=== PATIENT | female | born 1955 | race Caucasian/White ===

== ENCOUNTER → 2021-01-26 13:10 | Outpatient (CLI) | payer BC, OTHER, SELFPAY ==
[2021-01-26 14:47] LABS: COVID19 -Nasal RAPID Negative (Negative)
== END ==
PROVIDERS: Visit Provider Student in an Organized Health Care Education/Training Program
DX: Z01.812 Encounter for preprocedural laboratory examination (principal); Z20.822 Contact with and (suspected) exposure to COVID-19
CPT/HCPCS: 87635

== ENCOUNTER → 2021-01-28 10:39 | Outpatient (CLI) | payer MEDICARE, BC, OTHER, SELFPAY ==
--- NOTE | 2021-01-28 10:46 | DI.NM.S_ITS ---
PROCEDURE: NM WILIAM PERF SPECT REST & STR Rest and exercise myocardial perfusion SPECT with gated imaging and ejection fraction RADIOPHARMACEUTICAL: 12.0 mCi Tc-99m sestamibi IV at rest and 26.4 mCi Tc-99m sestamibi IV at peak exercise. A one day-protocol was performed. INDICATIONS: Paroxysmal atrial fibrillation TECHNIQUE: Radiopharmaceutical was injected at peak stress test, and also at rest. SPECT images were obtained. SPECT myocardial perfusion images were displayed in short axis, horizontal long axis, and vertical long axis views. Gated images were reviewed using [employer] software. COMPARISON: None. CARDIAC STRESS: A standard Mendel treadmill exercise tolerance test was performed by the patient under the supervision of an attending staff. The patient exercised for 5 minutes and 33 seconds; functional aerobic impairment (OTIS) is +13%. Hemodynamic data: There is normal blood pressure and heart rate response to exercise stress. Patient achieved 99% of maximum predicted heart rate at peak exercise. Symptoms: Patient denied chest pain during exercise. EKG: Minimal horizontal ST depressions in the anterolateral leads during recovery; frequent PVCs with 3 beat runs of NSVT. FINDINGS: Raw data: There is good myocardial labeling by radiotracer. No significant motion artifacts. Ikfd-no-gdxsl ratio is 0.39 (normal is less than 0.38 for sestamibi tracer, and less than 0.50 for thallium tracer). Left ventricle function: Gated images demonstrate normal left ventricle wall thickening. No segmental wall motion abnormality. No transient ischemic dilation; TID is 0.79 (normal less than 1.3). The left ventricle resting end-diastolic volume is 71 mL. Left ventricle stress ejection fraction is 90%; normal values are above 45%. Myocardial perfusion: There is normal distribution of activity in the left and right ventricular myocardium. No fixed or reversible perfusion defects. IMPRESSION: Low risk, normal treadmill nuclear stress test from ischemia standpoint. Recommend Echo to rule out structural heart abnormalities (if not done already). 1) No perfusion evidence of ischemia or infarction. 2) Normal left ventricular size, wall motion, and systolic function (EF post stress 90%). 3) Mildly elevated mdzq-tl-utoni rate of 0.39. Recommend Echo to rule out valvular disease. 4) Minimal horizontal ST depressions in the anterolateral leads during recovery. 5) Frequent PVCs with 3 beat runs of NSVT. 6) No angina during the study. 7) Mildly reduced exercise tolerance (7.0 METs, OTIS +13%). Target heart rate achieved. Appropriate BP response to exercise. 8) No prior nuclear stress test available for comparison. Dictated by: Aly Covington MD on 01/28/2021 at 17:43 Approved by: Aly Covington MD on 01/28/2021 at 17:47
== END ==
PROVIDERS: PCP Internal Medicine; Referring Provider Internal Medicine; Visit Provider Internal Medicine
DX: I48.0 Paroxysmal atrial fibrillation (principal)
CPT/HCPCS: 78452; 93017; A9502

== ENCOUNTER → 2021-02-16 13:47 | Outpatient (CLI) | payer MEDICARE, BC, OTHER, SELFPAY ==
--- NOTE | 2021-02-16 | DI.ECHO.S_ITS ---
[facility] +---------+ : : [address] [address] : : : : [id number] : : : : Phone: [phone] Echocardiogram Report + + :Name: KIAN HILL Study Date: 02/16/2021 Height: 68 in : :[facility] ReadingLocation: Weight: 180 lb : : Gender: Female BSA: 2.0 m2 : :: 1955 Age: 66 yrs BP: 147/84 mmHg: :Reason For Study: ATRIAL FIBRILLATION : :Ordering Physician: MISAEL, : :JOE Performed By: Liane Escalona : :Referring: JOE DOUGLAS : + + Interpretation Summary The left ventricle is normal in size and wall thickness. Left ventricular systolic function appears normal without focal wall motion abnormalities. The ejection fraction is estimated to be 60-65%. Diastolic parameters suggest a relaxation abnormality of the left ventricle, consistent with probable normal filling pressures. The right ventricle is borderline dilated. The right ventricular systolic function is normal. Pulmonary artery pressures cannot be estimated because of the lack of a measurable TR jet velocity but the IVC suggests a CVP of around 3 mmHg. The left atrial size is normal. Right atrial size is normal. There is no significant valvular heart disease. The ascending aorta is mildly enlarged. Procedure: A two-dimensional transthoracic echocardiogram with color flow and Doppler was performed. The study quality was technically adequate. There is no prior echocardiogram noted for this patient. The patient was in sinus rhythm with heart rates between 67-88 bpm during the exam. Left Ventricle: The left ventricle is normal in size and wall thickness. Left ventricular systolic function appears normal without focal wall motion abnormalities. The ejection fraction is estimated to be 60-65%. Diastolic parameters suggest a relaxation abnormality of the left ventricle, consistent with probable normal filling pressures. Right Ventricle: The right ventricle is borderline dilated. The right ventricular systolic function is normal. Atria: The left atrial size is normal. Right atrial size is normal. There is no Doppler evidence for an interatrial shunt. Mitral Valve: The mitral valve is normal in structure and function. There is no mitral regurgitation noted. Aortic Valve: The aortic valve opens well. There is no aortic valve stenosis. No aortic regurgitation is present. Tricuspid Valve: The tricuspid valve is normal in structure and function. No tricuspid regurgitation. Pulmonary artery pressures cannot be estimated because of the lack of a measurable TR jet velocity but the IVC suggests a CVP of around 3 mmHg. Pulmonic Valve: The pulmonic valve is not well seen, but is grossly normal. There is no pulmonic valvular regurgitation. There is no significant valvular heart disease. Great Vessels: The aortic root is normal size. The ascending aorta is mildly enlarged. The IVC is of normal diameter and collapses greater than 50% with a sniff. This suggests a low right atrial pressure of 3 mm Hg. Pericardium/ Pleura There is no pericardial effusion. There is no pleural effusion. MMode/2D Measurements & Calculations LVIDd: 4.0 cm LVOT diam: 2.0 cm LVIDs: 2.5 cm Ao root diam: 3.2 cm FS: 37.8 % asc Aorta Diam: 3.8 cm EPSS: 0.98 cm Ao Arch Diam (Prox Trans): 2.8 cm IVSd: 0.97 cm LVPWd: 0.87 cm LV ortiz. diameter/BSA (cm/m^2): 2.1 LV sys. diameter/BSA (cm/m^2): 1.3 LA A2 area: 17.0 cm2 RA long axis: 4.6 cm LA A4 area: 16.4 cm2 RA area: 14.7 cm2 LA length (vol): 4.8 cm RA vol: 40.4 ml LA vol: 48.9 ml RA : 20.7 ml/m2 LA vol index: 25.0 ml/m2 IVC diam: 0.96 cm RVD1 (basal): 3.9 cm TAPSE: 2.1 cm Doppler Measurements & Calculations Ao V2 max: 153.5 cm/sec LVOT Max Lencho: 115.9 cm/sec Ao V2 mean: 99.9 cm/sec LV V1 max P.4 mmHg Ao max P.4 mmHg LV V1 VTI: 24.3 cm Ao mean P.5 mmHg TARA(I,D): 2.8 cm2 Ao V2 VTI: 27.4 cm TARA(V,D): 2.4 cm2 sev ratio: 0.89 TARA indexed to BSA (cm^2/m^2): 1.4 MV E max lencho: 69.4 cm/sec PA V2 max: 87.4 cm/sec MV A max lencho: 101.6 cm/sec PA V2 mean: 60.5 cm/sec MV E/A: 0.68 PA mean P.7 mmHg Med Peak E' Lencho: 7.9 cm/sec PA pr(Accel): 48.2 mmHg E/E' med: 8.8 Lat Peak E' Lencho: 11.2 cm/sec E/E' lat: 6.2 E/e' average: 7.5 MV dec time: 0.23 sec SV(LVOT): 77.3 ml Reading Physician:03:55 PM
== END ==
PROVIDERS: PCP Internal Medicine; Referring Provider Internal Medicine; Visit Provider Internal Medicine
DX: I48.0 Paroxysmal atrial fibrillation (principal); I77.89 Other specified disorders of arteries and arterioles
CPT/HCPCS: 93306

== ENCOUNTER → 2023-10-04 12:41 | Outpatient (CLI) | payer MEDICARE, BC, OTHER, SELFPAY ==
--- NOTE | 2023-10-04 | DI.RAD.S_ITS ---
PROCEDURE: FL HIP INJECTION MR/CT RT INDICATIONS: RIGHT HIP PAIN TECHNIQUE: The indications, alternatives, benefits, risks, and complications of the procedure were explained to the patient. Written informed consent was obtained and placed in the chart. The hip was examined fluoroscopically with the legs fixed in slight internal rotation, and a site for needle placement chosen for entry into the hip joint from an anterior approach. Care was taken to locate the common femoral artery and vein beforehand. The skin was prepped and draped in a sterile fashion, and 1% Lidocaine infiltrated from skin down to joint capsule. A spinal needle was inserted into the joint, and a small amount of iodinated contrast media injected to confirm intra-articular placement of the needle tip. This was followed by approximately 10 mL dilute solution of a gadolinium containing MR contrast agent. The needle was removed and a dressing was applied. The patient was given postprocedural instructions and sent to the MR suite for imaging. COMPARISON: None. FINDINGS: A single fluoroscopic spot image demonstrates intra-articular location of injected iodinated contrast. IMPRESSION: Successful fluoroscopically guided administration of dilute Gadolinium solution into the hip joint for MR arthrogram. Dictated by: Roberto Stacy M.D. on 10/09/2023 at 13:02 Approved by: Roberto Stacy M.D. on 10/09/2023 at 13:03
--- NOTE | 2023-10-04 | DI.MRI.S_ITS ---
PROCEDURE: MR HIP RT W CON INDICATIONS: RIGHT HIP PAIN TECHNIQUE: After the administration of 10 mL of dilute intra-articular Gadolinium contrast, coronal STIR of the bony pelvis; coronal and oblique axial T1 spin echo with fat saturation, axial T2 fast spin echo with fat saturation, sagittal T1 spin echo with and without fat saturation of the involved hip. COMPARISON: [facility], CR, XR PELVIS WITH LATERAL HIP RIGHT, 11/14/2022, 11:53. [facility] [place], CR, XR PELVIS WITH LATERAL HIP RIGHT, 09/26/2023, 16:03. FINDINGS: Image quality: Excellent. Bones and joints: Asymmetric moderate right hip joint osteoarthritic changes are seen with superior joint space narrowing, subchondral sclerosis and lateral marginal osteophyte formation. There is no marrow edema. No intraosseous lesions or fractures. No avascular necrosis of the femoral head. The visualized lower lumbar spine appears normally aligned. The ligamental, neck, and labral plicae appear normal where visualized. Tendons and ligaments: Distal right gluteus medius and minimus tendinosis at their insertions on greater trochanter is seen. The nearby proximal iliotibial band also appears intact. The iliopsoas tendon appears intact, without adjacent bursal fluid collections or evidence for impingement syndrome. Mild tendinosis involving hamstring tendon origins at ischial tuberosity is also noted. Labrum and cartilage: There is thinning of articulating cartilage over right femoral head. Fraying of superior anterior labrum with contrast extension is seen at 12 to 1 o'clock position suggestive of superior anterior labral tear. No paralabral cysts. The alpha angle of the femur is within normal limits at less than 55 degrees. Soft tissues: Visualized muscles demonstrate normal bulk and internal signal. Quadratus femoris muscle demonstrates no internal edema to suggest ischiofemoral impingement. The proximal sciatic neurovascular bundle appears normal adjacent to the hamstring tendons. No free pelvic fluid. Bladder wall thickness is normal. Genitourinary structures and bowel loops appear normal where visualized. IMPRESSION: 1. Asymmetric moderate right hip joint osteoarthritis. No pelvic or hip fracture. No evidence of avascular necrosis. No intra-articular loose bodies. 2. Suggestion of superior anterior right hip labral tear at 12 to 1 o'clock position. 3. Distal right gluteus medius and minimus tendinosis. Tendinosis involving right hamstring tendon origins at ischial tuberosity. No other muscle or tendon signal abnormalities. Dictated by: Eliazar Marquez M.D. on 10/04/2023 at 16:19 Approved by: Eliazar Marquez M.D. on 10/04/2023 at 16:27
== END ==
LOC: RAD 12:42
PROVIDERS: PCP Internal Medicine; Referring Provider Orthopaedic Surgery; Visit Provider Orthopaedic Surgery
DX: S73.191A Other sprain of right hip, initial encounter (principal); M16.11 Unilateral primary osteoarthritis, right hip; X58.XXXA Exposure to other specified factors, initial encounter
CPT/HCPCS: 27093; 73722; 77002